=== PATIENT | male | born 1970 | race Two or more races ===

== ENCOUNTER → 2023-04-05 | Outpatient (CLI) | payer OTHER | END | disposition home or self-care (01) | LOC: LAB 09:46 | PROVIDERS: ATTEND Student in an Organized Health Care Education/Training Program | DX: Z12.11 Encounter for screening for malignant neoplasm of colon (principal) | CPT/HCPCS: 82274 ==

== ENCOUNTER 2023-10-25 10:11 | Day surgery (SDC) | payer OTHER ==
[2023-10-21 10:32] LABS: Basophils # (auto) 0 10 ^3/uL (0-0.2); Basophils % (auto) 0.6 % (0.0-2.0); Eosinophils # (auto) 0.1 10 ^3/uL (0-0.8); Eosinophils % (auto) 1.8 % (0.0-7.0); Hematocrit 43.2 % (41.0-53.0); Hemoglobin 14.2 g/dL (13.5-17.5); Lymphocytes # (auto) 1.8 10 ^3/uL (0.4-5.4); Lymphocytes % (auto) 33.2 % (10.0-50.0); Monocytes # (auto) 0.4 10 ^3/uL (0-1.3); Monocytes % (auto) 7.8 % (0.0-12.0); Neutrophils # (auto) 3.1 10 ^3/uL (1.6-8.6); Neutrophils % (auto) 56.6 % (37.0-80.0); Red Blood Cells 5.08 10^6/uL (4.5-5.90); Red Cell Distribution Width 14.7 % (11.8-14.3); White Blood Cell 5.5 10^3/uL (4.4-10.8)
[2023-10-21 10:56] LABS: INR 1.08 (0.9-1.15); Partial Thromboplastin Time 30.5 SEC (24.5-34.5); Prothrombin Time 11.4 sec (9.3-11.8)
[2023-10-21 11:15] LABS: Alanine Aminotransferase 17 U/L (7-40); Albumin 4.4 g/dL (3.2-4.8); Alkaline Phosphatase 69 U/L (46-116); Anion Gap 4 (5-15); Aspartate Aminotransferase 15 U/L (13-40); BUN/Creatinine Ratio 7.1 (10.0-20.0); Blood Urea Nitrogen 7 mg/dL (9-23); Calcium 9.8 mg/dL (8.5-10.1); Carbon Dioxide 29 mmol/L (20-30); Chloride 108 mmol/L (98-107); Glucose 87 mg/dL (74-106); Potassium 4.6 mmol/L (3.5-5.1); Sodium 141 mmol/L (136-145)
[2023-10-21 11:16] LABS: Bilirubin, Total 0.5 mg/dL (0.2-1.0); Total Protein 7.3 g/dL (5.7-8.2)
[~2023-10-25] VITALS: Ht 172.7 cm; Wt 81.6 kg
[2023-10-25] MEDS ORDERED: SODIUM CHLORIDE LOCK 10 ML ONE (10:20)
[2023-10-25 11:13] VITALS: O2SAT 99
[2023-10-25 11:16] VITALS: PULSE 72; RESP 15; O2SAT 99
[2023-10-25] MEDS: MIDAZOLAM HCL 5 MG/ML-1ML VIAL ONE (11:16)
[2023-10-25] MEDS: diphenhdrAMINE HCL 50 MG/1 ML VL ONE (11:16)
[2023-10-25] MEDS: fentaNYL CITRATE 100 MCG/2 ML VL ONE (11:16)
[2023-10-25 11:36] VITALS: PULSE 72; RESP 15; TEMP 98.8; O2SAT 99
[2023-10-25 12:00] VITALS: BP 158/99; PULSE 75; RESP 16; O2SAT 97
== END 2023-10-25 12:25 | disposition home or self-care (01) ==
LOC: GI 10:11
PROVIDERS: ATTEND Internal Medicine Gastroenterology
DX: R19.5 Other fecal abnormalities (principal); C18.6 Malignant neoplasm of descending colon; K63.5 Polyp of colon; K63.3 Ulcer of intestine; K64.8 Other hemorrhoids; I10 Essential (primary) hypertension; E78.5 Hyperlipidemia, unspecified; Z79.899 Other long term (current) drug therapy; Z98.890 Other specified postprocedural states; Z98.41 Cataract extraction status, right eye; Z98.42 Cataract extraction status, left eye
CPT/HCPCS: 36415; 45380; 45381; 80053; 85025; 85610; 85730; 88305; 88342; A4648; J1200; J2250; J3010; J7030; 99152